=== PATIENT | female | born 2000 | race Caucasian/White ===

== ENCOUNTER 2018-08-29 06:00 | Inpatient (IN) | payer OTHER ==
--- NOTE | 2018-08-28 21:04 | P.HPOB ---
History of Present Illness H&P Date: 08/28/18 Chief Complaint: Induction of labor This is a 18-year-old female 4 para 0 with an estimated date of confinement of 09/04/2018, estimated gestational age of 39 and one sevenths weeks, who presents to labor and delivery with complaints of contractions that have been irregular and pressure. She desires induction of labor. course has been essentially uncomplicated. She was using marijuana at the beginning of the for nausea and vomiting and was advised to stop it. She has had negative drug screens throughout the rest of her . She admits to good movement. labs: GC/chlamydia-negative Obstetrical ultrasound-within normal limits Quad screen-negative One hour Glucola-128 Group B streptococcus-negative Blood type-O+ Antibody screen-negative HIV-nonreactive Hepatitis B surface antigen-negative Hemoglobin-13.7 RPR-nonreactive Rubella-immune Obstetrical history: . History of 3 miscarriages. Gynecologic history: History of chlamydia treated twice in the past. Social history: She is single. She is unemployed. Review of Systems Constitutional: Denies chills, Denies fever Eyes: denies blurred vision, denies pain Ears, nose, mouth and throat: Reports hoarseness Cardiovascular: Denies chest pain, Denies shortness of breath Respiratory: Denies cough Gastrointestinal: Reports abdominal pain (Irregular contractions), Denies diarrhea, Denies nausea, Denies vomiting Genitourinary: Reports pelvic pain, Reports Musculoskeletal: Reports low back pain Integumentary: Denies pruritus, Denies rash Neurological: Denies numbness, Denies weakness Psychiatric: Denies anxiety, Denies depression Past Medical History Past Medical History: No Reported History Additional Past Surgical History / Comment(s): D&C Past Psychological History: No Psychological Hx Reported Smoking Status: Current every day smoker Past Drug Use History: Marijuana (History in early .) - Past Family History Mother Additional Family Medical History / Comment(s): Heart disease Medications and Allergies Home Medications Medication Instructions Recorded Confirmed Type Pnv,Calcium 72/Iron/Folic Acid 1 each PO 08/28/18 History [ Plus Tablet] Allergies Allergy/AdvReac Type Severity Reaction Status Date / Time No Known Allergies Allergy Verified 08/28/18 21:02 Exam Osteopathic Statement: *. No significant issues noted on an osteopathic structural exam other than those noted in the History and Physical/Consult. HEENT: Within normal limits Heart: Regular rate and rhythm Lungs: Clear to auscultation bilaterally Abdomen: Cervix: 1-1/2 cm/60%/-2 station heart tones: 130s by Doppler Extremities: Negative Homans Assessment and Plan (1) 39 weeks gestation of Status: Acute Code(s): Z3A.39 - 39 WEEKS GESTATION OF SNOMED Code(s): 89690704 Plan: Proceed with oxytocin induction of labor. Expectant management. Epidural anesthesia if desired.
[2018-08-29] MEDS ORDERED: LIDOCAINE 1% 20 ML VIAL (10MG/ML) FOR IV START INTRADERMA PRN (06:13)
[2018-08-29] MEDS ORDERED: TERBUTALINE 1 MG/ML VIAL SQ PRN (06:13)
[2018-08-29] MEDS ORDERED: OXYTOCIN 10 UNIT/ML 1 ML VIAL IM PRN (06:13)
[2018-08-29] MEDS ORDERED: METHYLERGONOVINE 0.2 MG/ML 1 ML AMP IM PRN (06:13)
[2018-08-29] MEDS ORDERED: OXYTOCIN 30 UNITS/500 ML NS 30 UNIT in SALINE 1 500ML.BAG IV SCH (06:13)
[2018-08-29] MEDS ORDERED: LIDOCAINE 0.5% (PF) 5 MG/ML (50 ML SDV) SQ PRN (06:13)
[2018-08-29] MEDS ORDERED: CARBOPROST TROMETHAMINE 250 MCG/ML 1 ML AMP IM PRN (06:13)
[2018-08-29 06:18] VITALS: BMI 38.0
[2018-08-29] MEDS: LACTATED RINGERS 1,000 ML IV SCH ×3 (06:23→16:33)
[2018-08-29 06:37] LABS: Basophils % (A) 0 %; Eosinophils # (A) 0.2 k/uL (0-0.7); Eosinophils % (A) 2 %; HCT 37.5 % (34.0-46.0); HGB 12.5 gm/dL (11.4-16.0); Lymphocytes % (A) 23 %; MCH 32.2 pg (25.0-35.0); MCHC 33.3 g/dL (31.0-37.0); MCV 96.9 fL (80.0-100.0); Mean Platelet Volume 7.5; Monocytes # (A) 0.5 k/uL (0-1.0); Monocytes % (A) 4 %; Neutrophils # (A) 9.1 k/uL (1.3-7.7); Neutrophils % (A) 70 %; Platelet Count 257 k/uL (150-450); RBC 3.87 m/uL (3.80-5.40); RDW 12.9 % (11.5-15.5); WBC 12.9 k/uL (4.0-11.0)
[2018-08-29] MEDS ORDERED: BUTORPHANOL 1 MG/ML 1 ML VIAL IV PRN (11:02)
[2018-08-29] MEDS ORDERED: fentaNYL (PF) 50 MCG/ML 5 ML AMP ONE (13:28)
[2018-08-29] MEDS ORDERED: ROPIVACAINE 5MG/ML 20ML VIAL ONE (13:28)
[2018-08-29] MEDS ORDERED: SODIUM CHLORIDE 0.9% 100 ML BAG ONE (13:28)
--- NOTE | 2018-08-29 18:44 | P.PROBDLV ---
Vaginal Delivery Note - . Vaginal Delivery Note: The patient progressed to complete dilation after oxytocin induction of labor and artificial rupture membranes with clear fluid noted. She did receive epidural anesthesia. Once reaching complete dilation, she began pushing. Infant's head came to a crown. With one further push, the infant's head delivered across the perineum in occiput anterior lie followed by the right shoulder and the remainder the body. Nose and mouth were bulb suctioned after delivery. Brisk cry was noted immediately. was placed on mother's abdomen. Cord was clamped and cut. Infant was then taken to warmer for evaluation. A viable male infant is noted with scores of 9 at 1 minute and 9 at 5 minutes and weight is 6 lbs. 12 oz. Placenta delivered shortly thereafter, intact, with a three-vessel cord. Uterus initially was boggy but did contract better after manual massage and oxytocin opened up. I did place a gloved hand within the endometrial cavity and no further placental tissue was palpated. Uterus finally did contract down and bleeding did slow. Inspection of the perineum revealed a small second-degree perineal laceration. This area was anesthetized with 1% lidocaine and then sutured with 3-0 Vicryl suture in the usual multilayer fashion. Estimated blood loss is approximately 350 mL's. Mother and infant are in stable condition.
[2018-08-29] MEDS ORDERED: WITCH HAZEL 1 EACH MED..PAD TOPICAL PRN (19:14)
[2018-08-29] MEDS ORDERED: HYDROCORTISONE 2.5% RECTAL CREAM 30 GM TUBE RECTAL PRN (19:14)
[2018-08-29] MEDS ORDERED: SIMETHICONE 80 MG CHEWABLE PO PRN (19:14)
[2018-08-29] MEDS ORDERED: LANOLIN CREAM 5 GM TUBE TOPICAL PRN (19:14)
[2018-08-29] MEDS ORDERED: BENZOCAINE/MENTHOL SPRAY 1 GM/SPRAY AEROSOL TOPICAL PRN (19:14)
[2018-08-29] MEDS ORDERED: OXYTOCIN 20 UNITS/1000 ML NS 1,000 ML IV SCH (19:14)
[2018-08-29] MEDS ORDERED: diphenhydrAMINE 50 MG CAP PO PRN (19:14)
[2018-08-29] MEDS ORDERED: diphenhydrAMINE 25 MG CAP PO PRN (19:14)
[2018-08-29] MEDS ORDERED: ZOLPIDEM 5 MG TAB PO PRN (19:14)
[2018-08-29] MEDS ORDERED: diphenhydrAMINE 50 MG/ML 1 ML VIAL IVP PRN ×2 (19:14)
[2018-08-29] MEDS: IBUPROFEN 600 MG TAB PO PRN (20:14)
[2018-08-29] MEDS: SENNOSIDES-DOCUSATE SODIUM 1 EACH TAB PO SCH (20:14)
[2018-08-29] MEDS: ACETAMINOPHEN TAB 325 MG TAB PO PRN (22:15)
[2018-08-30] MEDS: IBUPROFEN 600 MG TAB PO PRN ×3 (03:27→20:16)
[2018-08-30 06:48] LABS: Basophils % (A) 0 %; Eosinophils # (A) 0.2 k/uL (0-0.7); Eosinophils % (A) 1 %; HCT 33.5 % (34.0-46.0); HGB 11.2 gm/dL (11.4-16.0); Lymphocytes # (A) 2.5 k/uL (1.0-4.8); Lymphocytes % (A) 16 %; MCH 32.8 pg (25.0-35.0); MCHC 33.5 g/dL (31.0-37.0); MCV 97.9 fL (80.0-100.0); Mean Platelet Volume 7.7; Monocytes # (A) 0.6 k/uL (0-1.0); Monocytes % (A) 4 %; Neutrophils # (A) 11.6 k/uL (1.3-7.7); Neutrophils % (A) 77 %; Platelet Count 245 k/uL (150-450); RBC 3.42 m/uL (3.80-5.40); RDW 12.9 % (11.5-15.5)
[2018-08-30] MEDS: ACETAMINOPHEN TAB 325 MG TAB PO PRN ×2 (07:35→14:56)
[2018-08-30] MEDS: SENNOSIDES-DOCUSATE SODIUM 1 EACH TAB PO SCH ×2 (07:35→20:04)
[2018-08-30] MEDS ORDERED: DIPH,PERTUS(ACELL)TETVAC-LF 0.5 ML VIAL IM ONE (07:39)
--- NOTE | 2018-08-30 08:38 | P.DS ---
Providers Date of admission: 08/29/18 06:00 Expected date of discharge: 08/30/18 Attending physician: Yas Gayle Primary care physician: Stated None - Discharge Diagnosis(es) (1) 39 weeks gestation of Current Visit: No Status: Acute Hospital Course: This is a 18-year-old female 4 para 0 at 39 and one sevenths weeks who presented for induction of labor. She underwent oxytocin induction of labor and did receive epidural anesthesia. She delivered vaginally a viable male on 08/29/2018 with scores of 9 at 1 minute and 9 at 5 minutes and weight of 6 lbs. 12 oz. Her course has been essentially uncomplicated. Her bleeding has slowed significantly. Pain is fairly well controlled with ibuprofen. She is bottle feeding. Vital signs are stable. Abdomen is soft with fundus firm and nontender. Extremities show negative Homans. Impression is status post vaginal delivery day #1. Plan is to discharge home today. Routine instructions are given. She is advised follow-up in the office in 6 weeks for a check. She is advised to call the office if she has any further questions or concerns prior to her appointment time. She will be given a prescription for ibuprofen. Procedures: Oxytocin induction of labor Spontaneous vaginal delivery of a viable male on 08/29/2018 Patient Condition at Discharge: Stable Plan - Discharge Summary New Discharge Prescriptions: New Ibuprofen [Motrin] 600 mg PO Q6HR PRN #60 tab PRN Reason: Mild Pain Or Fever >= 100.5 Continue Pnv,Calcium 72/Iron/Folic Acid [ Plus Tablet] 1 each PO DAILY Discharge Medication List Pnv,Calcium 72/Iron/Folic Acid [ Plus Tablet] 1 each PO DAILY 08/28/18 [History] Ibuprofen [Motrin] 600 mg PO Q6HR PRN #60 tab 08/30/18 [Rx] Follow up Appointment(s)/Referral(s): Yas Gayle DO [Doctor of Osteopathic Medicine] - 6 Weeks Activity/Diet/Wound Care/Special Instructions: Instructions 1. Do not begin any exercise program for 3 weeks. 2. Do not resume sexual relations for 3 weeks or longer if uncomfortable. 3. You may take tub baths or showers at any time. 4. You may use tampons if desired after 3 weeks. 5. Keep the area of episiotomy (stitches) clean and dry. 6. If you are not nursing, wear a good fitting, supportive bra during the day and limit fluid intake for at least 1 week to prevent breast engorgement. 7. Call the office, [phone], within the next week to make appointment for your 6 week checkup if it has not already been made. 8. Report any of the following occurrences to the doctor promptly: a. Heavy, excessive bleeding b. Chills, fever c. Burning or frequency of urination d. Pain or redness and breasts if nursing e. Increasing pain or swelling in episiotomy (stitches). In addition to the above instructions, the following additional should be followed: 1. No heavy lifting or straining (exercising) until after 6 week checkup. 2. Keep abdominal incision clean and dry: You may wear a dressing if more comfortable. 3. Make office appointment for 10 days after going home or as instructed by her doctor. Discharge Disposition: HOME SELF-CARE
[2018-08-31] MEDS: ACETAMINOPHEN TAB 325 MG TAB PO PRN ×2 (01:22→07:48)
[2018-08-31] MEDS: IBUPROFEN 600 MG TAB PO PRN ×2 (04:09→11:15)
[2018-08-31 07:28] VITALS: BP 111/59; PULSE 68; RESP 16; TEMP 97.5
[2018-08-31] MEDS: SENNOSIDES-DOCUSATE SODIUM 1 EACH TAB PO SCH (08:03)
== END 2018-08-31 15:55 | disposition home or self-care (01) | DRG 807 ==
LOC: 4FBP 06:00
PROVIDERS: ADMIT Obstetrics & Gynecology; ATTEND Obstetrics & Gynecology
PROC: 10E0XZZ Delivery of Products of Conception, External Approach (ICD-10-PCS; principal; 2018-08-29)
PROC: 0KQM0ZZ Repair Perineum Muscle, Open Approach (ICD-10-PCS; principal; 2018-08-29)
PROC: 10907ZC Drainage of Amniotic Fluid, Therapeutic from Products of Conception, Via Natural or Artificial Opening (ICD-10-PCS; principal; 2018-08-29)
DX: O70.1 Second degree perineal laceration during delivery (principal); Z37.0 Single live birth; O99.334 Smoking (tobacco) complicating childbirth; F17.200 Nicotine dependence, unspecified, uncomplicated; Z3A.39 39 weeks gestation of pregnancy; Z86.19 Personal history of other infectious and parasitic diseases; Z82.49 Family history of ischemic heart disease and other diseases of the circulatory system
CPT/HCPCS: 85025; 86850; 86900; 86901; 90715